=== PATIENT | male | born 1955 | race Caucasian/White ===

== ENCOUNTER 2020-09-14 18:38 | Emergency (ER) | payer OTHER ==
[2020-09-14] MEDS ORDERED: EPINEPHRINE ABBOJECT 1 MG IV ONE (18:39)
[2020-09-14] MEDS ORDERED: SODIUM BICARBONATE INFANT 5 MEQ/10 ML IV ONE (18:39)
[2020-09-14] MEDS ORDERED: DUONEB 0.5-3 MG/3 ml Neb IH ONE ×2 (18:40→18:42)
[2020-09-14] MEDS ORDERED: solu-MEDROL 125 MG ONE (18:41)
[2020-09-14] MEDS ORDERED: NITRO-BID 2% UD PACKETS ONE (18:46)
[2020-09-14] MEDS ORDERED: Furosemide 100mg/10 ml Vial ONE (18:46)
[2020-09-14] MEDS ORDERED: Zofran 4 MG/2 ML VIAL ONE (18:48)
[2020-09-14 18:58] LABS: Absolute Neutrophil Ct (ANC) 7.35 (1.4-6.9); BASOPHIL % 0.2 % (0.0-0.4); Basophil (Absolute #) 0.03 (0-0.4); Eosinophil % 4.5 % (0.00-5.0); Eosinophil (Absolute #) 0.63 (0-0.5); Hematocrit 58.2 % (42-50); Lymphocyte (Absolute #) 4.56 (1.0-4.6); Lymphocytes % 32.8 % (24.0-44.0); Mean Cell Volume 92.4 fl (78-100); Mean Corpuscular Hemoglobin 30.2 pg (26-32); Mean Corpuscular Hgb Concent. 32.6 g/dl (32-36); Monocyte (Absolute #) 1.33 (0.0-1.3); Monocytes % 9.6 % (0.0-12.0); Neutrophil % 52.9 % (36.0-66.0); Platelet Count 222 K/mm3 (150-450); Red Cell Distribution Width 14.2 % (11.5-14.0); White Blood Count 13.9 K/mm3 (4.0-10.5)
[2020-09-14] MEDS ORDERED: Magnesium Sulfate 1 GM/2 ML VIAL ONE (19:04)
[2020-09-14] MEDS ORDERED: Ntg 0.2MG/Ml in D5W GLASS*** 250 ML IV ONE (19:13)
[2020-09-14] MEDS ORDERED: Sodium Chloride 0.9% 1000 ML 2,000 ML ONE (19:14)
[2020-09-14] MEDS ORDERED: Propofol 1000 mg/100 ml Bottle 100 ML IV ONE (19:16)
[2020-09-14 19:19] LABS: ALBUMIN 5.4 g/dL (3.5-5.0); BILIRUBIN,TOTAL 0.7 mg/dL (0.2-1.3); Calcium 9.9 mg/dL (8.4-10.2); Creatinine 1 1.34 mg/dL (0.66-1.25); EST GLOMERULAR FILTRATION RATE 57.2 ML/MIN; MAGNESIUM 2.4 mg/dL (1.6-2.3); Total Protein 9.8 g/dL (6.3-8.2)
--- NOTE | 2020-09-14 19:20 | ERPHSYRPT ---
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 denies cardiac or respiratory hx. lungs sounds rales throughout posteriorally. pt unable to lay in bed, breathes easier sitting at bedside. Physician History: 64 years old male with history of hypertension presented in the ER with 20- minute sudden onset shortness of breath while he was sharpening his lawnmower blades prior to arrival. Patient is in moderate to severe respiratory distress on presentation. Complaining of chest tightness pressure all over. Denies any fever or chills. History is limited secondary to acuity of condition. Timing/Duration: sudden, worse Activities at Onset: activity Severity of Dyspnea-Max: severe Severity of Dyspnea-Current: severe Possible Cause: no prior episodes Associated Symptoms: cough, chest pain/discomfort, edema, productive cough, tightness Allergies/Adverse Reactions: No Known Drug Allergies Allergy (Unverified 09/14/20 18:48) Home Medications: Atenolol 50 mg [Tenormin 50 mg] 50 mg PO DAILY 09/14/20 [History] Fosinopril Sodium 40 mg PO DAILY 09/14/20 [History] Omeprazole 40 mg PO DAILY 09/14/20 [History] Hx Tetanus, Diphtheria Vaccination/Date Given: Yes Hx Influenza Vaccination/Date Given: No Hx Pneumococcal Vaccination/Date Given: No Immunizations Up to Date: Yes Travel Risk - International Travel Have you traveled outside of the country in past 3 weeks: No - Coronavirus Screening Are you exhibiting any of the following symptoms?: Yes Symptoms: Shortness of Breath Close contact with a COVID-19 positive Pt in past 14-21 Days: No - Vaccine Status Have you recieved a Covid-19 vaccination: Yes Hand Stoner: Moderna - Vaccination Dates Date of 2cond Vaccination (if applicable): 09/08/20 - Review of Systems All Other Systems: Unable due to condition - Past Medical History Pertinent Past Medical History: Yes Cardiac History: High Cholesterol, Hypertension - Past Surgical History Past Surgical History: Yes - Social History Smoking Status: Never smoker Exposure to second hand smoke: No Drug Use: none Patient Lives Alone: No - Nursing Vital Signs Nursing Vital Signs: Initial Vital Signs Pulse Rate 142 H 09/14/20 18:39 Respiratory Rate 30 H 09/14/20 18:39 O2 Sat by Pulse Oximetry 84 L 09/14/20 18:39 Pain Scale Pain Intensity 0 - Physical Exam General Appearance: moderate distress, alert Eye Exam: PERRL/EOMI, eyes nml inspection Ears, Nose, Throat Exam: hearing grossly normal (2.5), pharyngeal erythema Neck Exam: normal inspection, supple, full range of motion Respiratory Exam: diminished breath sounds, accessory muscle use, crackles/rales, rhonchi, wheezing Cardiovascular/Chest Exam: tachycardia Abdominal/Gastrointestinal Exam: soft, normal bowel sounds, tenderness Extremity Exam: non-tender, normal range of motion, normal inspection, no calf tenderness Neurologic Exam: alert, oriented x 3, cooperative Skin Exam: pale SpO2 Interpretation: normal SpO2: 93 O2 Delivery: Room Air Procedures - Intubation Time of Intubation: 18:50 Intubation Indications: cardiac arrest, respiratory arrest, airway protection, respiratory distress Intubation Method: glidescope Tube Size (cm): 7.5 Endotracheal Tube Confirmation: bilateral breath sounds, positive end tidal CO2, good rise & fall of chest, stable or inc of O2 sat Intubation Complications: no complications Performed By: ED Physician Post Intubation Xray: Yes Progress/X-ray Impression: 09/14/20 20:56 6cm above prince - Course EKG Interpreted by Me: RATE ([id number]), Sinus Tach, NORMAL AXIS, Left Bundle Branch Block, Other (Early repolarization) Ordered Tests: Active Orders 24 hr Category Date Time Status CHEST 1 VIEW (PORTABLE) Stat Exams 09/14/20 18:47 Taken CHEST WITH CONTRAST [CT] Stat Exams 09/14/20 19:45 Taken ARTERIAL BLOOD GASES Stat Lab 09/14/20 19:22 Completed BLOOD CULTURE Stat Lab 09/14/20 19:16 Received CBC W DIFF Stat Lab 09/14/20 18:54 Completed CMP Stat Lab 09/14/20 18:54 Completed D-DIMER QUANTITATIVE Stat Lab 09/14/20 18:54 Completed Lactic Acid Stat Lab 09/14/20 19:22 Completed Lactic Acid Stat Lab 09/14/20 21:31 Completed MAGNESIUM Stat Lab 09/14/20 18:54 Completed NT PRO BNP Stat Lab 09/14/20 18:54 Completed POCT GLUCOSE Stat Lab 09/14/20 19:35 Completed Pot [Potassium] Stat Lab 09/14/20 21:40 Completed TROPONIN Q3H Lab 09/14/20 19:00 Completed TROPONIN Q3H Lab 09/14/20 21:40 Completed BiPap/CPAP STAT RT 09/14/20 18:47 Completed Intubate Patient STAT RT 09/14/20 18:55 Completed Respiratory Therapy Assessment DAILY RT 09/14/20 22:03 Completed Vent Settings [Ventilator Management] STAT RT 09/14/20 20:57 Completed Medication Summary Discontinued Medications Generic Name Dose Route Start Last Admin Trade Name Freq PRN Reason Stop Dose Admin Albuterol/Ipratropium Confirm 09/14/20 18:42 Duoneb 0.5-3 Mg/3 Ml Neb Administered 09/14/20 18:43 Dose 3 ml IH .STK-MED ONE Albuterol/Ipratropium 3 ml 09/14/20 18:40 09/14/20 18:45 Duoneb 0.5-3 Mg/3 Ml Neb IH 09/14/20 18:41 3 ml STAT ONE Administration Fentanyl Citrate Confirm 09/14/20 19:40 Sublimaze 100 Mcg/2 Ml Administered 09/14/20 19:41 Dose 100 mcg .ROUTE .STK-MED ONE Furosemide Confirm 09/14/20 18:46 Furosemide 100mg/10 Ml Vial Administered 09/14/20 18:47 Dose 100 mg .ROUTE .STK-MED ONE Furosemide Confirm 09/14/20 19:29 Lasix 40 Mg/4 Ml Administered 09/14/20 19:30 Dose 40 mg .ROUTE .STK-MED ONE Nitroglycerin/Dextrose Confirm 09/14/20 19:13 Ntg 0.2mg/Ml In D5w Glass Administered 09/14/20 19:14 Dose 250 mls @ ud IV .STK-MED ONE Sodium Chloride Confirm 09/14/20 19:14 Sodium Chloride 0.9% 1000 Ml Administered 09/14/20 19:15 Dose 2,000 mls @ ud .ROUTE .STK-MED ONE Propofol Confirm 09/14/20 19:16 Propofol 1000 Mg/100 Ml Bottle Administered 09/14/20 19:17 Dose 100 mls @ ud IV .STK-MED ONE Piperacillin Sod/Tazobactam 100 mls @ 200 mls/hr 09/14/20 19:26 09/14/20 19:44 Sod 3.375 gm/ Sodium Chloride IV 09/14/20 19:55 200 mls/hr STAT ONE Administration Sodium Chloride Confirm 09/14/20 19:43 Sodium Chloride 100ml Mini-Bag Plus Administered 09/14/20 19:44 Dose 100 mls @ ud IV .STK-MED ONE Dobutamine HCl/Dextrose Confirm 09/14/20 19:51 Dobutrex 500 Mg/D5w 250 Ml Administered 09/14/20 19:52 Dose 250 mls @ ud IV .STK-MED ONE Norepinephrine 4,000 mcg/ 504 mls @ 37.8 mls/hr 09/14/20 20:14 09/14/20 20:27 Dextrose IV 10/14/20 20:13 5 mcg/min .[id number] PRN 37.8 mls/hr SEVERE HYPOTENSION Administration Protocol 5 MCG/MIN Magnesium Sulfate Confirm 09/14/20 19:04 Magnesium Sulfate 1 Gm/2 Ml Vial Administered 09/14/20 19:05 Dose 2 gm .ROUTE .STK-MED ONE Methylprednisolone Sodium Succinate Confirm 09/14/20 18:41 Solu-Medrol 125 Mg Administered 09/14/20 18:42 Dose 125 mg .ROUTE .STK-MED ONE Midazolam HCl Confirm 09/14/20 20:21 Versed 5 Mg/5 Ml Administered 09/14/20 20:22 Dose 5 mg .ROUTE .STK-MED ONE Nitroglycerin Confirm 09/14/20 18:46 Nitro-Bid 2% Ud Packets Administered 09/14/20 18:47 Dose 1 gm .ROUTE .STK-MED ONE Ondansetron HCl Confirm 09/14/20 18:48 Zofran 4 Mg/2 Ml Vial Administered 09/14/20 18:49 Dose 4 mg .ROUTE .STK-MED ONE Piperacillin Sod/Tazobactam Sod Confirm 09/14/20 19:42 Zosyn 3.375 Gm Vial Administered 09/14/20 19:43 Dose 3.375 gm IV .STK-MED ONE Lab/Rad Data: Laboratory Result Diagrams 09/14/20 18:54 09/14/20 21:40 Laboratory Results 04/28/21 04/28/21 04/28/21 Range/Units 21:40 21:40 21:31 WBC (4.0-10.5) K/mm3 RBC (4.1-5.6) M/mm3 Hgb (12.5-18.0) gm/dl Hct (42-50) % MCV (78-100) fl MCH (26-32) pg MCHC (32-36) g/dl RDW (11.5-14.0) % Plt Count (150-450) K/mm3 MPV (7.5-11.0) fl Gran % (36.0-66.0) % Eos # (Auto) (0-0.5) Absolute Lymphs (auto) (1.0-4.6) Absolute Monos (auto) (0.0-1.3) Lymphocytes % (24.0-44.0) % Monocytes % (0.0-12.0) % Eosinophils % (0.00-5.0) % Basophils % (0.0-0.4) % Absolute Granulocytes (1.4-6.9) Basophils # (0-0.4) D-Dimer (215-500) ng/mL Puncture Site pCO2 (35-45) mmHg pO2 (75-100) mmHg Base Excess (-2.0-2.0) O2 Saturation (94-100) g/dF ABG pH (7.35-7.45) ABG HCO3 (22-28) ABG O2 Sat (Measured) (95-100) % Arden Test A-a Gradient a/A Ratio Hemoglobin Carboxyhemoglobin (0.0-6.9) % THgb Methemoglobin (1.4-1.5) % Temperature C POC O2 Flow Rate % Vent Mode Tidal Volume cc PEEP cmH2O Sodium (137-145) mmol/L Potassium 3.8 D (3.5-5.1) mmol/L Chloride (98-107) mmol/L Carbon Dioxide (22-30) mmol/L Anion Gap (5-15) MEQ/L BUN (9-20) mg/dL Creatinine (0.66-1.25) mg/dL Estimated GFR ML/MIN Glucose (74-106) mg/dL POC Glucometer (74 to 106) mg/dL Lactic Acid 4.2 H (0.4-2.0) Calcium (8.4-10.2) mg/dL Magnesium (1.6-2.3) mg/dL Total Bilirubin (0.2-1.3) mg/dL AST (17-59) U/L ALT (0-50) U/L Alkaline Phosphatase (38-126) U/L Troponin I 0.284 H* (0.000-0.034) ng/mL NT-Pro-B Natriuret Pep (0-900) pg/mL Serum Total Protein (6.3-8.2) g/dL Albumin (3.5-5.0) g/dL 09/14/20 09/14/20 09/14/20 Range/Units 19:35 19:22 19:00 WBC (4.0-10.5) K/mm3 RBC (4.1-5.6) M/mm3 Hgb (12.5-18.0) gm/dl Hct (42-50) % MCV (78-100) fl MCH (26-32) pg MCHC (32-36) g/dl RDW (11.5-14.0) % Plt Count (150-450) K/mm3 MPV (7.5-11.0) fl Gran % (36.0-66.0) % Eos # (Auto) (0-0.5) Absolute Lymphs (auto) (1.0-4.6) Absolute Monos (auto) (0.0-1.3) Lymphocytes % (24.0-44.0) % Monocytes % (0.0-12.0) % Eosinophils % (0.00-5.0) % Basophils % (0.0-0.4) % Absolute Granulocytes (1.4-6.9) Basophils # (0-0.4) D-Dimer (215-500) ng/mL Puncture Site LEFT BRACHIAL pCO2 61 H* (35-45) mmHg pO2 83 (75-100) mmHg Base Excess -11.9 L (-2.0-2.0) O2 Saturation 92.7 L (94-100) g/dF ABG pH 7.09 L* (7.35-7.45) ABG HCO3 18.5 L (22-28) ABG O2 Sat (Measured) 94.1 L (95-100) % Arden Test NOT APPLICABLE A-a Gradient 554 a/A Ratio 0.13 Hemoglobin 16.5 Carboxyhemoglobin 0.7 (0.0-6.9) % THgb Methemoglobin 0.8 L (1.4-1.5) % Temperature 37.0 C POC O2 Flow Rate 100 % Vent Mode A/C Tidal Volume 650 cc PEEP 5.0 cmH2O Sodium (137-145) mmol/L Potassium 2.7 L* (3.5-5.1) mmol/L Chloride (98-107) mmol/L Carbon Dioxide (22-30) mmol/L Anion Gap (5-15) MEQ/L BUN (9-20) mg/dL Creatinine (0.66-1.25) mg/dL Estimated GFR ML/MIN Glucose (74-106) mg/dL POC Glucometer 329 H (74 to 106) mg/dL Lactic Acid 11.4 H (0.4-2.0) Calcium (8.4-10.2) mg/dL Magnesium (1.6-2.3) mg/dL Total Bilirubin (0.2-1.3) mg/dL AST (17-59) U/L ALT (0-50) U/L Alkaline Phosphatase (38-126) U/L Troponin I 0.071 H* (0.000-0.034) ng/mL NT-Pro-B Natriuret Pep (0-900) pg/mL Serum Total Protein (6.3-8.2) g/dL Albumin (3.5-5.0) g/dL 09/14/20 09/14/20 09/14/20 Range/Units 18:54 18:54 18:54 WBC 13.9 H (4.0-10.5) K/mm3 RBC 6.30 H* (4.1-5.6) M/mm3 Hgb 19.0 H (12.5-18.0) gm/dl Hct 58.2 H (42-50) % MCV 92.4 (78-100) fl MCH 30.2 (26-32) pg MCHC 32.6 (32-36) g/dl RDW 14.2 H (11.5-14.0) % Plt Count 222 (150-450) K/mm3 MPV 13.0 H (7.5-11.0) fl Gran % 52.9 (36.0-66.0) % Eos # (Auto) 0.63 H (0-0.5) Absolute Lymphs (auto) 4.56 (1.0-4.6) Absolute Monos (auto) 1.33 H (0.0-1.3) Lymphocytes % 32.8 (24.0-44.0) % Monocytes % 9.6 (0.0-12.0) % Eosinophils % 4.5 (0.00-5.0) % Basophils % 0.2 (0.0-0.4) % Absolute Granulocytes 7.35 H (1.4-6.9) Basophils # 0.03 (0-0.4) D-Dimer 617 H* (215-500) ng/mL Puncture Site pCO2 (35-45) mmHg pO2 (75-100) mmHg Base Excess (-2.0-2.0) O2 Saturation (94-100) g/dF ABG pH (7.35-7.45) ABG HCO3 (22-28) ABG O2 Sat (Measured) (95-100) % Arden Test A-a Gradient a/A Ratio Hemoglobin Carboxyhemoglobin (0.0-6.9) % THgb Methemoglobin (1.4-1.5) % Temperature C POC O2 Flow Rate % Vent Mode Tidal Volume cc PEEP cmH2O Sodium 141 (137-145) mmol/L Potassium 5.1 (3.5-5.1) mmol/L Chloride 103 (98-107) mmol/L Carbon Dioxide 18 L (22-30) mmol/L Anion Gap 25.0 H (5-15) MEQ/L BUN 15 (9-20) mg/dL Creatinine 1.34 H (0.66-1.25) mg/dL Estimated GFR 57.2 ML/MIN Glucose 157 H (74-106) mg/dL POC Glucometer (74 to 106) mg/dL Lactic Acid (0.4-2.0) Calcium 9.9 (8.4-10.2) mg/dL Magnesium 2.4 H (1.6-2.3) mg/dL Total Bilirubin 0.70 (0.2-1.3) mg/dL AST 41 (17-59) U/L ALT 36 (0-50) U/L Alkaline Phosphatase 125 (38-126) U/L Troponin I (0.000-0.034) ng/mL NT-Pro-B Natriuret Pep 3100 H (0-900) pg/mL Serum Total Protein 9.8 H (6.3-8.2) g/dL Albumin 5.4 H (3.5-5.0) g/dL - Progress Progress: improved, re-examined Air Movement: fair Progress Note: 09/14/20 19:14 64 years old is evaluated for the respiratory distress. He is given Solu- Medrol/breathing treatment and placed on BiPAP, was pushed 60 of IV Lasix and patient respiratory distress got worse and went into respiratory arrest causing cardiac arrest. Patient is promptly suctioned and intubated. CPR was started and had multiple rounds of epi and bicarb and return of spontaneous circulation is achieved. He is started on nitro drip. [facility] is called which is at full capacity for ICU. [facility] is called for transfer. Family is counseled in detail. 09/14/20 19:46 D/W DR. [place], reviewed patient history, presentation, work-up and current management, agreed with transfer. He recommended obtaining CTA chest before transfer which would be done to make sure patient does not have PE although he has age-adjusted D-dimer is negative. 09/14/20 20:33 Patient getting hypotensive, has Nitropaste and nitro drip is stopped. I believe patient is getting hypotensive because of Lasix effect. Started on dobutamine followed by Levophed and pressure is improved to 120s now. Patient is waking up and given Versed. 09/14/20 22:19 Patient remains intubated. Levophed is stopped and continue with dobutamine. CTA chest is not a diagnostic study for PE because of motion artifact from epi athing via Ambu bag but could not see any obvious large PEs and has bilateral atelectasis. Patient is ready for transfer. Blood Culture(s) Obtained: Yes Antibiotics given: Yes Discussed with DrSarah: Other (Cristofer, [facility]) Counseled pt/family regarding: lab results, diagnosis, need for follow-up, rad results - Departure Departure Disposition: Transfer Clinical Impression: Pulmonary edema cardiac cause Failure respiratory Qualifiers: Chronicity: acute Respiratory failure complication: hypoxia and hypercapnia Qualified Code(s): J96.01 - Acute respiratory failure with hypoxia Acute exacerbation of CHF (congestive heart failure) Qualifiers: Heart failure type: unspecified Qualified Code(s): I50.9 - Heart failure, unspecified Condition: Serious Critical Care Time: Yes Critical Care Time(excluding separately billable procedures): Critical 75-104 mins Referrals: MEAGAN MILLER [Primary Care Provider] - Instructions: Heart Failure
[2020-09-14] MEDS ORDERED: Zosyn 3.375 GM Vial 3.375 GM in Sodium Chloride 100ML MINI-BAG PLUS 100 ML IV ONE (19:26)
[2020-09-14 19:29] LABS: A-aADO2 554; ABG HEMOGLOBIN 16.5; ARTERIAL BLD GAS O2 SATURATION 94.1 % (95-100); ARTERIAL BLD GAS TIDAL VOLUME 650 cc; ARTERIAL BLOOD GAS BASE EXCESS -11.9 (-2.0-2.0); ARTERIAL BLOOD GAS FIO2 100 %; ARTERIAL BLOOD GAS PO2 83 mmHg (75-100); ARTERIAL BLOOD GAS VENT MODE A/C; CARBOXYHEMOGLOBIN 0.7 % THgb (0.0-6.9); HCO3- 18.5 (22-28); HGB O2 SAT 92.7 g/dF (94-100); Lactic Acid 11.4 (0.4-2.0); Methhemoglobin 0.8 % (1.4-1.5)
[2020-09-14] MEDS ORDERED: Lasix 40 MG/4 ML ONE (19:29)
[2020-09-14 19:30] LABS: ABG POTASSIUM 2.7 (3.5-5.1); ARTERIAL BLOOD GAS PCO2 61 mmHg (35-45); ARTERIAL BLOOD GAS pH 7.09 (7.35-7.45)
[2020-09-14 19:31] LABS: Potassium 5.1 mmol/L (3.5-5.1)
[2020-09-14 19:31] LABS: ABG SITE LEFT BRACHIAL
[2020-09-14] MEDS ORDERED: SUBLIMAZE 100 MCG/2 ML ONE (19:40)
[2020-09-14] MEDS ORDERED: Zosyn 3.375 GM Vial IV ONE (19:42)
[2020-09-14] MEDS ORDERED: Sodium Chloride 100ML MINI-BAG PLUS 100 ML IV ONE (19:43)
[2020-09-14] MEDS ORDERED: DOBUTREX 500 MG/D5W 250 ML 250 ML IV ONE (19:51)
[2020-09-14] MEDS ORDERED: LEVOPHED 4 MG/4 ML 4,000 MCG in Dextrose 5%/Water IV Soln. 500 ML 500 ML IV PRN (20:14)
[2020-09-14] MEDS ORDERED: VERSED 5 MG/5 ML ONE (20:21)
[2020-09-14 22:11] VITALS: BP 161/106; PULSE 112
[2020-09-14 22:21] VITALS: O2SAT 93
--- NOTE | 2020-09-15 08:41 | XRAY ---
Indication: Endotracheal tube placement. Cardiac arrest. Comparison: None Portable chest demonstrates endotracheal tube tip 6 cm above the prince. Query additional tubing coiled mid neck, possibly NG tube. Diffuse bilateral hazy airspace opacities without consolidation, large effusion, or pneumothorax. Boderline cardiomegaly. Bony thorax intact.
--- NOTE | 2020-09-15 08:46 | XRAY ---
Indication: Respiratory distress with cardiac arrest. Elevated d-dimer. Multiple contiguous axial images obtained through the chest using 100 cc Isovue 370 contrast and PE protocol. Comparison: None Beam artifact from patient's arms and significant respiration artifact markedly limits evaluation for pulmonary embolus. No obvious pulmonary embolus in the main pulmonary arteries. Heart is borderline enlarged. Aorta is normal in course and caliber. Endotracheal tube tip approximately 6 cm above prince. Small right suprahilar calcified node. No pathologic mediastinal/hilar lymphadenopathy. Lungs demonstrate moderate/significant bilateral dependent atelectasis. Query patchy hazy groundglass opacities bilaterally, difficult to confirm given respiration artifact. No large effusion or pneumothorax. Bony thorax intact with minimal degenerative changes throughout the spine. Limited upper abdomen demonstrates fatty liver. Stomach is moderately distended with air/fluid. Impression: 1. Markedly limited exam due to respiration and beam artifact. No obvious pulmonary embolus in main pulmonary arteries. 2. Query patchy hazy ground glass opacities bilaterally. 3. Borderline cardiomegaly and bilateral dependent atelectasis. 4. Endotracheal tube tip 6 cm above prince. 5. Incidental fatty liver.
== END 2020-09-14 22:19 | disposition short-term general hospital (02) ==
LOC: ED 18:38
DX: I50.1 Left ventricular failure, unspecified (principal); J96.01 Acute respiratory failure with hypoxia; Z79.899 Other long term (current) drug therapy; I10 Essential (primary) hypertension; E78.00 Pure hypercholesterolemia, unspecified; R07.89 Other chest pain
CPT/HCPCS: 31500; 36415; 36600; 71045; 71260; 80053; 82375; 82803; 82947; 83605; 83735; 83880; 84132; 84484; 85025; 85379; 87040; 87077; 94002; 94640; 94799; 96365; 96367; 96375; 99285; 99291; 99292; J0171; J1250; J1940; J2250; J2405; J2704; J2930; J3010; J3475; A9270-GY

== ENCOUNTER 2021-05-29 12:14 | Observation (INO) | payer BC ==
--- NOTE | 2021-05-29 12:53 | ERPHSYRPT ---
- History of Present Illness Time Seen by Provider: 05/29/21 12:35 Source: patient Exam Limitations: no limitations Patient Subjective Stated Complaint: Pt states "I am not feeling well. I am very anxious and my hands and feet are sweaty and my belly hurts. I started a new anxiety med and after I started the medicine, that is when all this started." Triage Nursing Assessment: Pt presented alert and oriented X 3, skin wpd Pt ambulates with an upright steady gait, ablble to speak in clear full sentences. Pt resting comfortably on the bed. Physician History: Patient is a 65-year-old male presents to our ED with complaints of feeling unwell. Symptoms started yesterday. Patient states he feels anxious. He states his hands and feet have been sweating excessively. Patient also has lower sternal pain. Patient describes his pain as abdominal pain. No trauma. No fever. 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 Patient has 2 stents. Patient has been taking all medications as prescribed. Patient states his primary care doctor advised patient to come to our ED for evaluation. Symptoms are mild to moderate in intensity. No specific worsening improving factors. Patient voices no other complaints or concerns at this time.. Timing/Duration: today Severity: moderate Modifying Factors: Improves With: nothing Associated Symptoms: other Allergies/Adverse Reactions: No Known Drug Allergies Allergy (Verified 05/29/21 12:26) Home Medications: Omeprazole 40 mg PO DAILY 09/14/20 [History] Aspirin [Ecotrin] 81 mg PO DAILY 05/29/21 [History] Atorvastatin Calcium [Lipitor 40Mg] 40 mg PO HS 05/29/21 [History] Carvedilol 12.5 mg [Coreg 12.5 mg] 12.5 mg PO BID 05/29/21 [History] Eplerenone 25 mg PO DAILY 05/29/21 [History] Prasugrel HCL 10 MG [Effient 10 MG TABLET] 10 mg PO HS 05/29/21 [History] Sacubitril/Valsartan [Entresto 97 mg-103 mg Tablet] 1 tab PO BID 05/29/21 [History] Hx Tetanus, Diphtheria Vaccination/Date Given: No Hx Influenza Vaccination/Date Given: Yes Hx Pneumococcal Vaccination/Date Given: No Immunizations Up to Date: Yes Travel Risk - International Travel Have you traveled outside of the country in past 3 weeks: No - Coronavirus Screening Are you exhibiting any of the following symptoms?: No Close contact with a COVID-19 positive Pt in past 14-21 Days: No - Vaccine Status Have you recieved a Covid-19 vaccination: Yes [employer]: Moderna - Vaccination Dates Date of 2cond Vaccination (if applicable): 09/2020 - Review of Systems Constitutional: No Symptoms, No Fever, No Chills Eyes: No Symptoms Ears, Nose, & Throat: No Symptoms Respiratory: No Symptoms, No Cough, No Dyspnea Cardiac: No Symptoms, No Chest Pain, No Edema, No Syncope Abdominal/Gastrointestinal: No Symptoms, No Abdominal Pain, No Nausea, No Vomiting, No Diarrhea Genitourinary Symptoms: No Symptoms, No Dysuria Musculoskeletal: No Symptoms, No Back Pain, No Neck Pain Skin: No Symptoms, No Rash Neurological: No Symptoms, No Dizziness, No Focal Weakness, No Sensory Changes Psychological: No Symptoms Endocrine: No Symptoms Hematologic/Lymphatic: No Symptoms Immunological/Allergic: No Symptoms All Other Systems: Reviewed and Negative - Past Medical History Pertinent Past Medical History: Yes Neurological History: No Pertinent History Cardiac History: High Cholesterol, Hypertension, Myocardial Infarction (RI) Psycho-Social History: Anxiety, Depression - Past Surgical History Past Surgical History: Yes Other Surgical History: cardiac stents - Social History Smoking Status: Never smoker Exposure to second hand smoke: No Drug Use: none Patient Lives Alone: No - Nursing Vital Signs Nursing Vital Signs: Initial Vital Signs Temperature 97.7 F 05/29/21 12:19 Pulse Rate 92 H 05/29/21 12:19 Respiratory Rate 20 05/29/21 12:19 Blood Pressure 200/112 05/29/21 12:19 O2 Sat by Pulse Oximetry 97 05/29/21 12:19 Pain Scale Pain Intensity 2 - Physical Exam General Appearance: no apparent distress, alert Eye Exam: PERRL/EOMI, eyes nml inspection Ears, Nose, Throat Exam: normal ENT inspection, TMs normal, pharynx normal, moist mucous membranes Neck Exam: normal inspection, non-tender, supple, full range of motion Respiratory Exam: normal breath sounds, lungs clear, airway intact, No respiratory distress Cardiovascular Exam: regular rate/rhythm, normal heart sounds, normal peripheral pulses Gastrointestinal/Abdomen Exam: soft, normal bowel sounds, No tenderness, No mass Back Exam: normal inspection, normal range of motion, No CVA tenderness, No vertebral tenderness Extremity Exam: normal inspection, normal range of motion, pelvis stable Neurologic Exam: alert, oriented x 3, cooperative, normal mood/affect, sensation nml, No motor deficits Skin Exam: normal color, warm, dry, No rash Lymphatic Exam: No adenopathy SpO2 Interpretation: normal SpO2: 97 O2 Delivery: Room Air - Course Nursing assessment & vital signs reviewed: Yes EKG Interpreted by Me: RATE (82), NORMAL AXIS, NORMAL INTERVALS, Non-specific ST Changes (ST depression at 1 and aVL.), Other (Atrial paced complexes. Probable LVH with secondary repull abnormality.) - Radiology Exams Chest X-ray Interpretation: Interpreted by me (Lung mckeon are clear. Borderline cardiomegaly. Intact bony thorax.) Ordered Tests: Active Orders 24 hr Category Date Time Status LIPID PROFILE AM.LAB Lab 05/30/21 05:15 Completed Medication Summary Discontinued Medications Generic Name Dose Route Start Last Admin Trade Name Freq PRN Reason Stop Dose Admin Acetaminophen 650 mg 05/29/21 20:49 Acetaminophen 325 Mg Tablet PO 06/28/21 20:48 Q4H PRN PRN PAIN AND/OR FEVER Al Hydrox/Mg Hydrox/Simethicone 30 ml 05/29/21 20:49 05/30/21 08:18 Mag Hydrox/Al Hydrox/Simeth 30 Ml Udcup PO 06/28/21 20:48 30 ml Q4H PRN PRN Administration INDIGESTION Aspirin 324 mg 05/29/21 20:12 Aspirin 81 Mg Tab.Chew PO 05/29/21 20:13 STAT ONE Aspirin 81 mg 05/30/21 12:00 05/30/21 14:52 Aspirin 81 Mg Tablet.Ec PO 06/29/21 11:59 81 mg DAILY TOMASZ Administration Carvedilol 12.5 mg 05/29/21 22:00 05/30/21 09:22 Carvedilol 12.5 Mg Tablet PO 06/28/21 21:59 12.5 mg BID TOMASZ Administration Ezetimibe 10 mg/ Simvastatin 0 mg 05/29/21 22:00 40 mg PO 06/28/21 21:59 HS TOMASZ Furosemide 20 mg 05/30/21 10:00 Furosemide 20 Mg/Vial IV 06/29/21 09:59 QAM TOMASZ Magnesium Hydroxide 30 - 60 ml 05/29/21 20:49 Magnesium Hydroxide 30 Ml Udcup PO 06/28/21 20:48 QDP PRN CONSTIPATION Miscellaneous Information 1 each 05/30/21 11:15 Medication Intervention 1 Each Each PO 06/29/21 11:14 .RN TO CHECK ON TOMASZ Nitroglycerin 1 gm 05/29/21 20:11 Nitroglycerin 1 Gm Packet TOP 05/29/21 20:12 STAT ONE Ondansetron HCl 4 mg 05/29/21 23:12 Zofran 4 Mg/Udtablet Orally Disintegrating PO 06/28/21 23:11 Q6H PRN PRN NAUSEA/VOMITING Pantoprazole Sodium 40 mg 05/30/21 12:00 05/30/21 14:52 Protonix (Pantoprazole) 40 Mg Tablet PO 06/29/21 11:59 40 mg DAILY TOMASZ Administration Prasugrel 10 mg 05/30/21 10:00 Prasugrel Hydrochloride 10 Mg Tablet PO 06/29/21 09:59 DAILY TOMASZ Prasugrel 10 mg 05/29/21 23:09 05/29/21 23:12 Prasugrel Hydrochloride 10 Mg Tablet PO 06/28/21 21:59 10 mg HS TOMASZ Administration Sacubitril/Valsartan 2 tablet 05/29/21 10:00 05/30/21 09:22 Sacubitril/Valsartan 1 Tablet Tablet PO 06/28/21 09:59 2 tablet BID TOMASZ Administration Sacubitril/Valsartan Confirm 05/29/21 23:02 Sacubitril/Valsartan 1 Tablet Tablet Administered 05/29/21 23:03 Dose 2 tablet .ROUTE .STK-MED ONE Senna/Docusate Sodium 2 udtab 05/29/21 20:49 Senna/Docusate Sodium 1 Udtab Tablet PO 06/28/21 20:48 BID PRN PRN CONSTIPATION Simvastatin 40 mg 05/29/21 22:00 05/29/21 23:12 Simvastatin 20 Mg Tablet PO 06/28/21 21:59 40 mg HS TOMASZ Administration Lab/Rad Data: Laboratory Result Diagrams 05/29/21 12:59 05/29/21 12:59 Laboratory Results 05/29/21 05/29/21 05/29/21 Range/Units 19:00 17:55 16:18 WBC (4.0-10.5) K/mm3 RBC (4.1-5.6) M/mm3 Hgb (12.5-18.0) gm/dl Hct (42-50) % MCV (78-100) fl MCH (26-32) pg MCHC (32-36) g/dl RDW (11.5-14.0) % Plt Count (150-450) K/mm3 MPV (7.5-11.0) fl Gran % (36.0-66.0) % Eos # (Auto) (0-0.5) Absolute Lymphs (auto) (1.0-4.6) Absolute Monos (auto) (0.0-1.3) Lymphocytes % (24.0-44.0) % Monocytes % (0.0-12.0) % Eosinophils % (0.00-5.0) % Basophils % (0.0-0.4) % Absolute Granulocytes (1.4-6.9) Basophils # (0-0.4) Sodium (137-145) mmol/L Potassium (3.5-5.1) mmol/L Chloride (98-107) mmol/L Carbon Dioxide (22-30) mmol/L Anion Gap (5-15) MEQ/L BUN (9-20) mg/dL Creatinine (0.66-1.25) mg/dL Estimated GFR ML/MIN Glucose (74-106) mg/dL Calcium (8.4-10.2) mg/dL Total Bilirubin (0.2-1.3) mg/dL AST (17-59) U/L ALT (0-50) U/L Alkaline Phosphatase (38-126) U/L Troponin I 0.013 0.018 (0.000-0.034) ng/mL NT-Pro-B Natriuret Pep (0-900) pg/mL Serum Total Protein (6.3-8.2) g/dL Albumin (3.5-5.0) g/dL Lipase (23-300) U/L Urine Color (YELLOW) Urine Appearance (CLEAR) Urine pH (5-6) Ur Specific [place] (1.005-1.025) Urine Protein (Negative) Urine Ketones (NEGATIVE) Urine Blood (0-5) Rosales/ul Urine Nitrite (NEGATIVE) Urine Bilirubin (NEGATIVE) Urine Urobilinogen (0-1) mg/dL Ur Leukocyte Esterase (NEGATIVE) Urine WBC (Auto) (0-5) /HPF Urine RBC (Auto) (0-2) /HPF U Epithel Cells (Auto) (FEW) /HPF Urine Bacteria (Auto) (NEGATIVE) /HPF Urine Mucus (Auto) (NEGATIVE) /HPF Urine Culture Reflexed (NO) Urine Glucose (NEGATIVE) mg/dL Influenza Type A Ag NEGATIVE (NEGATIVE) Influenza Type B Ag NEGATIVE (NEGATIVE) RSV (PCR) NEGATIVE (Negative) SARS-CoV-2 (PCR) NEGATIVE (NEGATIVE) 05/29/21 05/29/21 05/29/21 Range/Units 15:22 12:59 12:59 WBC (4.0-10.5) K/mm3 RBC (4.1-5.6) M/mm3 Hgb (12.5-18.0) gm/dl Hct (42-50) % MCV (78-100) fl MCH (26-32) pg MCHC (32-36) g/dl RDW (11.5-14.0) % Plt Count (150-450) K/mm3 MPV (7.5-11.0) fl Gran % (36.0-66.0) % Eos # (Auto) (0-0.5) Absolute Lymphs (auto) (1.0-4.6) Absolute Monos (auto) (0.0-1.3) Lymphocytes % (24.0-44.0) % Monocytes % (0.0-12.0) % Eosinophils % (0.00-5.0) % Basophils % (0.0-0.4) % Absolute Granulocytes (1.4-6.9) Basophils # (0-0.4) Sodium 140 (137-145) mmol/L Potassium 4.4 (3.5-5.1) mmol/L Chloride 105 (98-107) mmol/L Carbon Dioxide 26 (22-30) mmol/L Anion Gap 13.4 (5-15) MEQ/L BUN 20 (9-20) mg/dL Creatinine 1.27 H (0.66-1.25) mg/dL Estimated GFR > 60.0 ML/MIN Glucose 99 (74-106) mg/dL Calcium 9.7 (8.4-10.2) mg/dL Total Bilirubin 0.80 (0.2-1.3) mg/dL AST 30 (17-59) U/L ALT 37 (0-50) U/L Alkaline Phosphatase 77 (38-126) U/L Troponin I < 0.012 (0.000-0.034) ng/mL NT-Pro-B Natriuret Pep 1060 H (0-900) pg/mL Serum Total Protein 7.8 (6.3-8.2) g/dL Albumin 5.0 (3.5-5.0) g/dL Lipase 156 (23-300) U/L Urine Color KARI (YELLOW) Urine Appearance SLIGHTLY CLOUDY (CLEAR) Urine pH 5.0 (5-6) Ur Specific [place] 1.029 (1.005-1.025) Urine Protein 100 (Negative) Urine Ketones NEGATIVE (NEGATIVE) Urine Blood NEGATIVE (0-5) [place]/ul Urine Nitrite NEGATIVE (NEGATIVE) Urine Bilirubin NEGATIVE (NEGATIVE) Urine Urobilinogen 2 (0-1) mg/dL Ur Leukocyte Esterase NEGATIVE (NEGATIVE) Urine WBC (Auto) NONE (0-5) /HPF Urine RBC (Auto) NONE (0-2) /HPF U Epithel Cells (Auto) NONE (FEW) /HPF Urine Bacteria (Auto) NONE (NEGATIVE) /HPF Urine Mucus (Auto) SLIGHT (NEGATIVE) /HPF Urine Culture Reflexed NO (NO) Urine Glucose NEGATIVE (NEGATIVE) mg/dL Influenza Type A Ag (NEGATIVE) Influenza Type B Ag (NEGATIVE) RSV (PCR) (Negative) SARS-CoV-2 (PCR) (NEGATIVE) 05/29/21 Range/Units 12:59 WBC 10.0 (4.0-10.5) K/mm3 RBC 4.75 (4.1-5.6) M/mm3 Hgb 14.1 (12.5-18.0) gm/dl Hct 42.6 (42-50) % MCV 89.7 (78-100) fl MCH 29.7 (26-32) pg MCHC 33.1 (32-36) g/dl RDW 13.3 (11.5-14.0) % Plt Count 195 (150-450) K/mm3 MPV 12.0 H (7.5-11.0) fl Gran % 76.8 H (36.0-66.0) % Eos # (Auto) 0.11 (0-0.5) Absolute Lymphs (auto) 1.34 (1.0-4.6) Absolute Monos (auto) 0.84 (0.0-1.3) Lymphocytes % 13.4 L (24.0-44.0) % Monocytes % 8.4 (0.0-12.0) % Eosinophils % 1.1 (0.00-5.0) % Basophils % 0.3 (0.0-0.4) % Absolute Granulocytes 7.71 H (1.4-6.9) Basophils # 0.03 (0-0.4) Sodium (137-145) mmol/L Potassium (3.5-5.1) mmol/L Chloride (98-107) mmol/L Carbon Dioxide (22-30) mmol/L Anion Gap (5-15) MEQ/L BUN (9-20) mg/dL Creatinine (0.66-1.25) mg/dL Estimated GFR ML/MIN Glucose (74-106) mg/dL Calcium (8.4-10.2) mg/dL Total Bilirubin (0.2-1.3) mg/dL AST (17-59) U/L ALT (0-50) U/L Alkaline Phosphatase (38-126) U/L Troponin I (0.000-0.034) ng/mL NT-Pro-B Natriuret Pep (0-900) pg/mL Serum Total Protein (6.3-8.2) g/dL Albumin (3.5-5.0) g/dL Lipase (23-300) U/L Urine Color (YELLOW) Urine Appearance (CLEAR) Urine pH (5-6) Ur Specific [place] (1.005-1.025) Urine Protein (Negative) Urine Ketones (NEGATIVE) Urine Blood (0-5) Rosales/ul Urine Nitrite (NEGATIVE) Urine Bilirubin (NEGATIVE) Urine Urobilinogen (0-1) mg/dL Ur Leukocyte Esterase (NEGATIVE) Urine WBC (Auto) (0-5) /HPF Urine RBC (Auto) (0-2) /HPF U Epithel Cells (Auto) (FEW) /HPF Urine Bacteria (Auto) (NEGATIVE) /HPF Urine Mucus (Auto) (NEGATIVE) /HPF Urine Culture Reflexed (NO) Urine Glucose (NEGATIVE) mg/dL Influenza Type A Ag (NEGATIVE) Influenza Type B Ag (NEGATIVE) RSV (PCR) (Negative) SARS-CoV-2 (PCR) (NEGATIVE) - Progress Progress: improved Discussed with .: Nate Will see patient in: hospital (observation) Counseled pt/family regarding: lab results, diagnosis, rad results - Departure Departure Disposition: Home Clinical Impression: 4 mm right middle lobe noncalcified nodu, Urinary bladder calcification/mass, Colon, diverticulosis, 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 The patient was counseled regarding Diagnosis,Lab results, Imaging studies, need for follow up and when to return to the Emergency Room. Prescriptions given: Discharge Note I have spoken with the patient and/or caregivers. I have explained the patient's condition, diagnosis and treatment plan based on the information available to me at this time. I have answered the patient's and/or caregiver's questions and addressed any concerns. The patient and/or caregivers have as good understanding of the patient's diagnosis, condition and treatment plan as can be expected at this point. The vital signs have been stable. The patient's condition is stable and appropriate for discharge from the emergency department. The patient will pursue further outpatient evaluation with the primary care physician or other designated or consulting physician as outlined in the discharge instructions. The patient and/or caregivers are agreeable to this plan of care and follow-up instructions have been explained in detail. The patient and/or caregivers have received these instruction. The patient/and or caregivers are aware that any significant change in condition or worsening of symptoms should prompt an immediate return to this or the closest emergency department or call 911.
[2021-05-29 13:03] LABS: Absolute Neutrophil Ct (ANC) 7.71 (1.4-6.9); Basophil (Absolute #) 0.03 (0-0.4); Eosinophil % 1.1 % (0.00-5.0); Eosinophil (Absolute #) 0.11 (0-0.5); Hematocrit 42.6 % (42-50); Hemoglobin 14.1 gm/dl (12.5-18.0); Lymphocyte (Absolute #) 1.34 (1.0-4.6); Lymphocytes % 13.4 % (24.0-44.0); Mean Cell Volume 89.7 fl (78-100); Mean Corpuscular Hemoglobin 29.7 pg (26-32); Mean Corpuscular Hgb Concent. 33.1 g/dl (32-36); Monocyte (Absolute #) 0.84 (0.0-1.3); Monocytes % 8.4 % (0.0-12.0); Neutrophil % 76.8 % (36.0-66.0); Platelet Count 195 K/mm3 (150-450); Red Blood Count 4.75 M/mm3 (4.1-5.6); Red Cell Distribution Width 13.3 % (11.5-14.0)
--- NOTE | 2021-05-29 13:21 | XRAY ---
Indication: Chest pain. Comparison: September 14, 2020. Portable apical lordotic chest underinflated and clear. Heart not enlarged with new left AICD. Bony thorax intact again with mild osteopenia and degenerative changes. Impression: Nonacute underinflated chest with chronic features.
[2021-05-29 13:31] LABS: ALKALINE PHOSPHATASE 77 U/L (38-126); ANION GAP 13.4 MEQ/L (5-15); BLOOD UREA NITROGEN 20 mg/dL (9-20); CHLORIDE 105 mmol/L (98-107); Calcium 9.7 mg/dL (8.4-10.2); Carbon Dioxide 26 mmol/L (22-30); Creatinine 1 1.27 mg/dL (0.66-1.25); EST GLOMERULAR FILTRATION RATE > 60.0 ML/MIN; Glucose 99 mg/dL (74-106); LIPASE 156 U/L (23-300); NT PRO BNP 1060 pg/mL (0-900); Potassium 4.4 mmol/L (3.5-5.1); SGOT/AST 30 U/L (17-59); SGPT/ALT 37 U/L (0-50); SODIUM 140 mmol/L (137-145); Total Protein 7.8 g/dL (6.3-8.2)
[2021-05-29 15:39] LABS: Appearance SLIGHTLY CLOUDY (CLEAR); Bilirubin NEGATIVE (NEGATIVE); Blood NEGATIVE Ery/ul (0-5); Glucose NEGATIVE (NEGATIVE); Ketones NEGATIVE (NEGATIVE); Leukocyte Esterase NEGATIVE (NEGATIVE); Mucus SLIGHT /HPF (NEGATIVE); Nitrite NEGATIVE (NEGATIVE); Protein,Urine Dip 100 (Negative); Specific Gravity 1.029 (1.005-1.025); Urobilinogen 2 mg/dL (0-1)
--- NOTE | 2021-05-29 17:00 | XRAY ---
Indication: Epigastric pain. Multiple contiguous axial images obtained through the abdomen and pelvis using 80 cc Isovue 370 contrast. Comparison: None Lung bases demonstrate minimal fibrosis/scarring. Indeterminant 4 mm right middle lobe noncalcified nodule. Heart not enlarged. Noncontrasted stomach and bowel loops appear nonobstructed with normal appendix. Minimal descending and sigmoid diverticulosis. No free fluid/air. Posterior urinary bladder demonstrates 1.3 cm curvilinear calcification, possible bladder wall mass. Remaining liver, gallbladder, pancreas, spleen, adrenal glands, kidneys, ureters, and bladder are unremarkable. Moderate scattered aortoiliac calcifications. No AAA or pathologic retroperitoneal lymphadenopathy. Osseous structures intact with mild degenerative spondylosis throughout the thoracolumbar spine. Incidental small fatty left inguinal hernia. Impression: 1. Indeterminate 4 mm right middle lobe noncalcified nodule. 2. 1.3 cm urinary bladder calcification/mass. Rule out malignancy such as transitional cell carcinoma. 3. Incidental colonic diverticulosis, multilevel degenerative spondylosis, and small fatty left inguinal hernia.
[2021-05-29 18:49] LABS: INFLUENZA A NEGATIVE (NEGATIVE); INFLUENZA B NEGATIVE (NEGATIVE); RESPIRATORY SYNCTIAL VIRUS NEGATIVE (Negative); SARS-CoV-2 Xpert Express NEGATIVE (NEGATIVE)
[2021-05-29] MEDS ORDERED: NITRO-BID 2% UD PACKETS TOP ONE (20:11)
[2021-05-29] MEDS ORDERED: BABY ASPIRIN 81 MG CHEW PO ONE (20:12)
[2021-05-29] MEDS ORDERED: TYLENOL 325 MG PO PRN (20:49)
[2021-05-29] MEDS ORDERED: MILK OF MAGNESIA 30 ML PO PRN (20:49)
[2021-05-29] MEDS ORDERED: MAALOX ES 30 ML UNIT DOSE PO PRN (20:49)
[2021-05-29] MEDS ORDERED: Senokot-S Tablet PO PRN (20:49)
[2021-05-29] MEDS ORDERED: ZOCOR 20MG PO SCH (22:00)
[2021-05-29] MEDS ORDERED: Zetia 10 MG** 10 MG, ZOCOR 20MG** 40 MG PO SCH ×2 (22:00)
[2021-05-29] MEDS ORDERED: ENTRESTO 49 MG-51 MG TABLET ONE (23:02)
[2021-05-29] MEDS ORDERED: Effient 10 MG TABLET PO SCH (23:09)
[2021-05-29] MEDS: ENTRESTO 49 MG-51 MG TABLET PO SCH (23:11)
[2021-05-29] MEDS: COREG 12.5 MG PO SCH (23:12)
[2021-05-29] MEDS ORDERED: ZOFRAN ODT 4 MG PO PRN (23:12)
[2021-05-30 06:28] LABS: Risk Ratio 3.8
[2021-05-30] MEDS: ENTRESTO 49 MG-51 MG TABLET PO SCH (09:22)
[2021-05-30] MEDS: COREG 12.5 MG PO SCH (09:22)
[2021-05-30] MEDS ORDERED: Effient 10 MG TABLET PO SCH (10:00)
[2021-05-30] MEDS ORDERED: Lasix 20 MG/2 ML IV SCH (10:00)
--- NOTE | 2021-05-30 11:04 | PCM.SSS ---
History of Present Illness - Chief Complaint Chief Complaint: ACS History of Present Illness: is a 65 year old male patient of Dr Hope. Hx CAD/ PA with cardiac arrest August 2020 Stent x2 Followed by [facility] Dr Rema Nolan.Also CHF on Entresto. C/O low sternal/epigastroic abd pain. States xs perspiration after taking a new med for anxiety last week(Lexapro 10mg) C/O gas and stomach unsettled for past month.Patient was seen by his PCP yesterday who advised him to go to ER. He is admitted for obs Dg ACS. Troponin was not elevated ,BNP was mildly elevated. Patient denies chest pain this morning,no dispnea but c/o bloating discomfort upper abdomen.Appetite is normal and denies dark stool or N/V. - Review of Systems Constitutional: Fatigue Eyes: No Symptoms Ears, Nose, & Throat: Nose Discharge Respiratory: Short Of Breath (on exertion) Cardiac: Chest Pain (state more epigastric area) Abdominal/Gastrointestinal: Other (bloating dyspepsia) Genitourinary Symptoms: No Symptoms Musculoskeletal: No Symptoms Skin: No Symptoms Neurological: No Symptoms Psychological: Anxiety (since PA last year), Other (Quit drinking beer and chewing tabacco after PA Spring 2020) Endocrine: No Symptoms Hematologic/Lymphatic: Other (is on anticoagulant ) Medications & Allergies Home Medications: Home Medication List Omeprazole 40 mg PO DAILY 09/14/20 [History Confirmed 05/29/21] Aspirin [Ecotrin] 81 mg PO DAILY 05/29/21 [History Confirmed 05/29/21] Atorvastatin Calcium [Lipitor 40Mg] 40 mg PO HS 05/29/21 [History Confirmed 05/29/21] Carvedilol 12.5 mg [Coreg 12.5 mg] 12.5 mg PO BID 05/29/21 [History Confirmed 05/29/21] Eplerenone 25 mg PO DAILY 05/29/21 [History Confirmed 05/29/21] Prasugrel HCL 10 MG [Effient 10 MG TABLET] 10 mg PO HS 05/29/21 [History Confirmed 05/29/21] Sacubitril/Valsartan [Entresto 97 mg-103 mg Tablet] 1 tab PO BID 05/29/21 [History Confirmed 05/29/21] Sucralfate [Carafate] 1 g PO QID #60 tablet 05/30/21 [Rx] Allergies/Adverse Reactions: Allergies Allergy/AdvReac Type Severity Reaction Status Date / Time No Known Drug Allergies Allergy Verified 05/29/21 12:26 - Past Medical History Past Medical History: Yes Neurological History: No Pertinent History ENT History: No Pertinent History Cardiac History: High Cholesterol, Hypertension, Myocardial Infarction (PA) Respiratory History: No Pertinent History Endocrine Medical History: No Pertinent History Musculoskelatal History: No Pertinent History GI Medical History: No Pertinent History History: Other Pyscho-Social History: Anxiety, Depression Male Reproductive Disorders: No Pertinent History Comment: told today that he had a spot on bladder - Past Surgical History Past Surgical History: Yes Cardiac History: Cardiac Stent, Internal Defibrillator, Pacemaker Other Surgical History: cardiac stentsx2 - Social History Smoking Status: Never smoker Exposure to second hand smoke: No Alcohol: None Drug Use: none - Physical Exam Vital Signs: Vital Signs - 24 hr Temp Pulse Resp BP Pulse Ox 05/30/21 08:00 97.7 F 63 15 157/92 95 05/30/21 04:00 98.1 F 71 18 128/73 95 05/29/21 23:34 97.4 F 59 L 16 135/76 97 05/29/21 21:03 97.5 F 65 18 195/98 96 05/29/21 20:57 97.5 F 65 18 195/98 96 05/29/21 20:49 96 05/29/21 20:27 97 05/29/21 19:23 69 19 185/109 96 05/29/21 18:55 61 19 153/103 96 05/29/21 17:32 60 14 166/93 96 05/29/21 15:20 62 17 164/92 98 05/29/21 14:04 61 17 154/87 96 05/29/21 13:49 84 18 148/87 98 05/29/21 12:51 96 05/29/21 12:19 97.7 F 92 H 20 200/112 97 General Appearance: no apparent distress Neurologic Exam: alert, oriented x 3, cooperative, regroover II-XII nml as tested, normal mood/affect, nml cerebellar function Eye Exam: eyes nml inspection Ears, Nose, Throat Exam: normal ENT inspection Neck Exam: normal inspection Respiratory Exam: normal breath sounds Cardiovascular Exam: regular rate/rhythm Gastrointestinal/Abdomen Exam: normal bowel sounds, tenderness (epigastum mildy tender and no guarding), distention Rectal Exam: not done Back Exam: normal inspection Extremity Exam: normal inspection (no pitting edema,asa hose on) Skin Exam: normal color, warm, dry Results - Labs Lab/Micro Results: Lab Results-Last 24 Hours 05/29/21 05/29/21 05/29/21 Range/Units 12:59 12:59 12:59 WBC 10.0 (4.0-10.5) K/mm3 RBC 4.75 (4.1-5.6) M/mm3 Hgb 14.1 (12.5-18.0) gm/dl Hct 42.6 (42-50) % MCV 89.7 (78-100) fl MCH 29.7 (26-32) pg MCHC 33.1 (32-36) g/dl RDW 13.3 (11.5-14.0) % Plt Count 195 (150-450) K/mm3 MPV 12.0 H (7.5-11.0) fl Gran % 76.8 H (36.0-66.0) % Eos # (Auto) 0.11 (0-0.5) Absolute Lymphs (auto) 1.34 (1.0-4.6) Absolute Monos (auto) 0.84 (0.0-1.3) Lymphocytes % 13.4 L (24.0-44.0) % Monocytes % 8.4 (0.0-12.0) % Eosinophils % 1.1 (0.00-5.0) % Basophils % 0.3 (0.0-0.4) % Absolute Granulocytes 7.71 H (1.4-6.9) Basophils # 0.03 (0-0.4) Sodium 140 (137-145) mmol/L Potassium 4.4 (3.5-5.1) mmol/L Chloride 105 (98-107) mmol/L Carbon Dioxide 26 (22-30) mmol/L Anion Gap 13.4 (5-15) MEQ/L BUN 20 (9-20) mg/dL Creatinine 1.27 H (0.66-1.25) mg/dL Estimated GFR > 60.0 ML/MIN Glucose 99 (74-106) mg/dL Calcium 9.7 (8.4-10.2) mg/dL Total Bilirubin 0.80 (0.2-1.3) mg/dL AST 30 (17-59) U/L ALT 37 (0-50) U/L Alkaline Phosphatase 77 (38-126) U/L Troponin I < 0.012 (0.000-0.034) ng/mL NT-Pro-B Natriuret Pep 1060 H (0-900) pg/mL Serum Total Protein 7.8 (6.3-8.2) g/dL Albumin 5.0 (3.5-5.0) g/dL Triglycerides (30-150) mg/dL Cholesterol (50-200) mg/dL LDL Cholesterol (30-100) mg/dL HDL Cholesterol (40-60) mg/dL Heart Disease Risk Ratio Lipase 156 (23-300) U/L Urine Color (YELLOW) Urine Appearance (CLEAR) Urine pH (5-6) Ur Specific [place] (1.005-1.025) Urine Protein (Negative) Urine Ketones (NEGATIVE) Urine Blood (0-5) Rosales/ul Urine Nitrite (NEGATIVE) Urine Bilirubin (NEGATIVE) Urine Urobilinogen (0-1) mg/dL Ur Leukocyte Esterase (NEGATIVE) Urine WBC (Auto) (0-5) /HPF Urine RBC (Auto) (0-2) /HPF U Epithel Cells (Auto) (FEW) /HPF Urine Bacteria (Auto) (NEGATIVE) /HPF Urine Mucus (Auto) (NEGATIVE) /HPF Urine Culture Reflexed (NO) Urine Glucose (NEGATIVE) mg/dL Influenza Type A Ag (NEGATIVE) Influenza Type B Ag (NEGATIVE) RSV (PCR) (Negative) SARS-CoV-2 (PCR) (NEGATIVE) 05/29/21 05/29/21 05/29/21 Range/Units 15:22 16:18 17:55 WBC (4.0-10.5) K/mm3 RBC (4.1-5.6) M/mm3 Hgb (12.5-18.0) gm/dl Hct (42-50) % MCV (78-100) fl MCH (26-32) pg MCHC (32-36) g/dl RDW (11.5-14.0) % Plt Count (150-450) K/mm3 MPV (7.5-11.0) fl Gran % (36.0-66.0) % Eos # (Auto) (0-0.5) Absolute Lymphs (auto) (1.0-4.6) Absolute Monos (auto) (0.0-1.3) Lymphocytes % (24.0-44.0) % Monocytes % (0.0-12.0) % Eosinophils % (0.00-5.0) % Basophils % (0.0-0.4) % Absolute Granulocytes (1.4-6.9) Basophils # (0-0.4) Sodium (137-145) mmol/L Potassium (3.5-5.1) mmol/L Chloride (98-107) mmol/L Carbon Dioxide (22-30) mmol/L Anion Gap (5-15) MEQ/L BUN (9-20) mg/dL Creatinine (0.66-1.25) mg/dL Estimated GFR ML/MIN Glucose (74-106) mg/dL Calcium (8.4-10.2) mg/dL Total Bilirubin (0.2-1.3) mg/dL AST (17-59) U/L ALT (0-50) U/L Alkaline Phosphatase (38-126) U/L Troponin I 0.018 (0.000-0.034) ng/mL NT-Pro-B Natriuret Pep (0-900) pg/mL Serum Total Protein (6.3-8.2) g/dL Albumin (3.5-5.0) g/dL Triglycerides (30-150) mg/dL Cholesterol (50-200) mg/dL LDL Cholesterol (30-100) mg/dL HDL Cholesterol (40-60) mg/dL Heart Disease Risk Ratio Lipase (23-300) U/L Urine Color KARI (YELLOW) Urine Appearance SLIGHTLY CLOUDY (CLEAR) Urine pH 5.0 (5-6) Ur Specific [place] 1.029 (1.005-1.025) Urine Protein 100 (Negative) Urine Ketones NEGATIVE (NEGATIVE) Urine Blood NEGATIVE (0-5) Rosales/ul Urine Nitrite NEGATIVE (NEGATIVE) Urine Bilirubin NEGATIVE (NEGATIVE) Urine Urobilinogen 2 (0-1) mg/dL Ur Leukocyte Esterase NEGATIVE (NEGATIVE) Urine WBC (Auto) NONE (0-5) /HPF Urine RBC (Auto) NONE (0-2) /HPF U Epithel Cells (Auto) NONE (FEW) /HPF Urine Bacteria (Auto) NONE (NEGATIVE) /HPF Urine Mucus (Auto) SLIGHT (NEGATIVE) /HPF Urine Culture Reflexed NO (NO) Urine Glucose NEGATIVE (NEGATIVE) mg/dL Influenza Type A Ag NEGATIVE (NEGATIVE) Influenza Type B Ag NEGATIVE (NEGATIVE) RSV (PCR) NEGATIVE (Negative) SARS-CoV-2 (PCR) NEGATIVE (NEGATIVE) 05/29/21 05/29/21 05/30/21 Range/Units 19:00 22:15 01:10 WBC (4.0-10.5) K/mm3 RBC (4.1-5.6) M/mm3 Hgb (12.5-18.0) gm/dl Hct (42-50) % MCV (78-100) fl MCH (26-32) pg MCHC (32-36) g/dl RDW (11.5-14.0) % Plt Count (150-450) K/mm3 MPV (7.5-11.0) fl Gran % (36.0-66.0) % Eos # (Auto) (0-0.5) Absolute Lymphs (auto) (1.0-4.6) Absolute Monos (auto) (0.0-1.3) Lymphocytes % (24.0-44.0) % Monocytes % (0.0-12.0) % Eosinophils % (0.00-5.0) % Basophils % (0.0-0.4) % Absolute Granulocytes (1.4-6.9) Basophils # (0-0.4) Sodium (137-145) mmol/L Potassium (3.5-5.1) mmol/L Chloride (98-107) mmol/L Carbon Dioxide (22-30) mmol/L Anion Gap (5-15) MEQ/L BUN (9-20) mg/dL Creatinine (0.66-1.25) mg/dL Estimated GFR ML/MIN Glucose (74-106) mg/dL Calcium (8.4-10.2) mg/dL Total Bilirubin (0.2-1.3) mg/dL AST (17-59) U/L ALT (0-50) U/L Alkaline Phosphatase (38-126) U/L Troponin I 0.013 0.020 0.020 (0.000-0.034) ng/mL NT-Pro-B Natriuret Pep (0-900) pg/mL Serum Total Protein (6.3-8.2) g/dL Albumin (3.5-5.0) g/dL Triglycerides (30-150) mg/dL Cholesterol (50-200) mg/dL LDL Cholesterol (30-100) mg/dL HDL Cholesterol (40-60) mg/dL Heart Disease Risk Ratio Lipase (23-300) U/L Urine Color (YELLOW) Urine Appearance (CLEAR) Urine pH (5-6) Ur Specific [place] (1.005-1.025) Urine Protein (Negative) Urine Ketones (NEGATIVE) Urine Blood (0-5) Rosales/ul Urine Nitrite (NEGATIVE) Urine Bilirubin (NEGATIVE) Urine Urobilinogen (0-1) mg/dL Ur Leukocyte Esterase (NEGATIVE) Urine WBC (Auto) (0-5) /HPF Urine RBC (Auto) (0-2) /HPF U Epithel Cells (Auto) (FEW) /HPF Urine Bacteria (Auto) (NEGATIVE) /HPF Urine Mucus (Auto) (NEGATIVE) /HPF Urine Culture Reflexed (NO) Urine Glucose (NEGATIVE) mg/dL Influenza Type A Ag (NEGATIVE) Influenza Type B Ag (NEGATIVE) RSV (PCR) (Negative) SARS-CoV-2 (PCR) (NEGATIVE) 05/30/21 Range/Units 05:15 WBC (4.0-10.5) K/mm3 RBC (4.1-5.6) M/mm3 Hgb (12.5-18.0) gm/dl Hct (42-50) % MCV (78-100) fl MCH (26-32) pg MCHC (32-36) g/dl RDW (11.5-14.0) % Plt Count (150-450) K/mm3 MPV (7.5-11.0) fl Gran % (36.0-66.0) % Eos # (Auto) (0-0.5) Absolute Lymphs (auto) (1.0-4.6) Absolute Monos (auto) (0.0-1.3) Lymphocytes % (24.0-44.0) % Monocytes % (0.0-12.0) % Eosinophils % (0.00-5.0) % Basophils % (0.0-0.4) % Absolute Granulocytes (1.4-6.9) Basophils # (0-0.4) Sodium (137-145) mmol/L Potassium (3.5-5.1) mmol/L Chloride (98-107) mmol/L Carbon Dioxide (22-30) mmol/L Anion Gap (5-15) MEQ/L BUN (9-20) mg/dL Creatinine (0.66-1.25) mg/dL Estimated GFR ML/MIN Glucose (74-106) mg/dL Calcium (8.4-10.2) mg/dL Total Bilirubin (0.2-1.3) mg/dL AST (17-59) U/L ALT (0-50) U/L Alkaline Phosphatase (38-126) U/L Troponin I (0.000-0.034) ng/mL NT-Pro-B Natriuret Pep (0-900) pg/mL Serum Total Protein (6.3-8.2) g/dL Albumin (3.5-5.0) g/dL Triglycerides 136 (30-150) mg/dL Cholesterol 140 (50-200) mg/dL LDL Cholesterol 67 (30-100) mg/dL HDL Cholesterol 37 L (40-60) mg/dL Heart Disease Risk Ratio 3.8 Lipase (23-300) U/L Urine Color (YELLOW) Urine Appearance (CLEAR) Urine pH (5-6) Ur Specific [place] (1.005-1.025) Urine Protein (Negative) Urine Ketones (NEGATIVE) Urine Blood (0-5) Rosales/ul Urine Nitrite (NEGATIVE) Urine Bilirubin (NEGATIVE) Urine Urobilinogen (0-1) mg/dL Ur Leukocyte Esterase (NEGATIVE) Urine WBC (Auto) (0-5) /HPF Urine RBC (Auto) (0-2) /HPF U Epithel Cells (Auto) (FEW) /HPF Urine Bacteria (Auto) (NEGATIVE) /HPF Urine Mucus (Auto) (NEGATIVE) /HPF Urine Culture Reflexed (NO) Urine Glucose (NEGATIVE) mg/dL Influenza Type A Ag (NEGATIVE) Influenza Type B Ag (NEGATIVE) RSV (PCR) (Negative) SARS-CoV-2 (PCR) (NEGATIVE) - Radiology Impressions Radiology Exams & Impressions: Radiology Procedures Category Date Time Status ABDOMEN AND PELVIS W CONTRAST [CT] Stat Exams 05/29/21 15:59 Completed ABDOMINAL-LIMITED [US] Routine Exams 05/30/21 Ordered CHEST 1 VIEW (PORTABLE) Stat Exams 05/29/21 12:47 Completed - Other Procedures and Tests Respiratory Therapy 05/31/21 05:00 EKG DAILY 06/01/21 05:00 EKG DAILY Assessment/Plan (1) ACS (acute coronary syndrome) Status: Acute Assessment & Plan: troponins not elevated,Epigastric/low sternal pain Cardiac VS GI Code(s): I24.9 - ACUTE ISCHEMIC HEART DISEASE, UNSPECIFIED (2) CHF (congestive heart failure) Status: Chronic Qualifiers: Heart failure chronicity: chronic Assessment & Plan: elevated BNP,patient is on Entresto and BNP stays mildly elevated per [facility] Dr Rema Nolan . Code(s): I50.9 - HEART FAILURE, UNSPECIFIED (3) Dyspepsia Status: Acute Assessment & Plan: bloating and epigastic siscomfort . possible GBdz - but US negative for stones or wall thickening testing done today and will be followed by PCP. Gastritis on blood thinner -started Carafate,will need a scope and prefers Dr Nicole De Jesus to evaluate. Outpatient appt set. Code(s): R10.13 - EPIGASTRIC PAIN Hospital Summary - Hospital Course Hospital Course: Patient was admitted from ER to Med surg with C/O low sternal/epigastic pain. Troponins remained normal. BNP was mildly elevated and this is about patient's baseline since PA and stents August/September [address] Rema Nolan who will continue to follow with patient upon discharge. GI workup for dyspepsia on anticoagulant. GBUS was neg for stones and no wall thickening. Discussed need for scope and patient would like to see Dr Nicole De Jesus,appt made as outpatient. Patient will follow with his PCP, Dr Citlali De Dios. - Vitals & Intake/Output Vital Signs: Vital Signs Temperature 97.7 F 05/30/21 08:00 Pulse Rate 63 05/30/21 08:00 Respiratory Rate 15 05/30/21 08:00 Blood Pressure 157/92 05/30/21 08:00 O2 Sat by Pulse Oximetry 95 05/30/21 08:00 Intake & Output: Intake & Output 05/27/21 05/28/21 05/29/21 05/30/21 11:59 11:59 11:59 11:59 Intake Total 600 Output Total 900 Balance -300 Weight 99.2 kg - Lab Result Diagrams: 05/29/21 12:59 05/29/21 12:59 Lab Results-Last 24 Hrs: Lab Results-Last 24 Hours 05/29/21 05/29/21 05/29/21 Range/Units 12:59 12:59 12:59 WBC 10.0 (4.0-10.5) K/mm3 RBC 4.75 (4.1-5.6) M/mm3 Hgb 14.1 (12.5-18.0) gm/dl Hct 42.6 (42-50) % MCV 89.7 (78-100) fl MCH 29.7 (26-32) pg MCHC 33.1 (32-36) g/dl RDW 13.3 (11.5-14.0) % Plt Count 195 (150-450) K/mm3 MPV 12.0 H (7.5-11.0) fl Gran % 76.8 H (36.0-66.0) % Eos # (Auto) 0.11 (0-0.5) Absolute Lymphs (auto) 1.34 (1.0-4.6) Absolute Monos (auto) 0.84 (0.0-1.3) Lymphocytes % 13.4 L (24.0-44.0) % Monocytes % 8.4 (0.0-12.0) % Eosinophils % 1.1 (0.00-5.0) % Basophils % 0.3 (0.0-0.4) % Absolute Granulocytes 7.71 H (1.4-6.9) Basophils # 0.03 (0-0.4) Sodium 140 (137-145) mmol/L Potassium 4.4 (3.5-5.1) mmol/L Chloride 105 (98-107) mmol/L Carbon Dioxide 26 (22-30) mmol/L Anion Gap 13.4 (5-15) MEQ/L BUN 20 (9-20) mg/dL Creatinine 1.27 H (0.66-1.25) mg/dL Estimated GFR > 60.0 ML/MIN Glucose 99 (74-106) mg/dL Calcium 9.7 (8.4-10.2) mg/dL Total Bilirubin 0.80 (0.2-1.3) mg/dL AST 30 (17-59) U/L ALT 37 (0-50) U/L Alkaline Phosphatase 77 (38-126) U/L Troponin I < 0.012 (0.000-0.034) ng/mL NT-Pro-B Natriuret Pep 1060 H (0-900) pg/mL Serum Total Protein 7.8 (6.3-8.2) g/dL Albumin 5.0 (3.5-5.0) g/dL Triglycerides (30-150) mg/dL Cholesterol (50-200) mg/dL LDL Cholesterol (30-100) mg/dL HDL Cholesterol (40-60) mg/dL Heart Disease Risk Ratio Lipase 156 (23-300) U/L Urine Color (YELLOW) Urine Appearance (CLEAR) Urine pH (5-6) Ur Specific [place] (1.005-1.025) Urine Protein (Negative) Urine Ketones (NEGATIVE) Urine Blood (0-5) Rosales/ul Urine Nitrite (NEGATIVE) Urine Bilirubin (NEGATIVE) Urine Urobilinogen (0-1) mg/dL Ur Leukocyte Esterase (NEGATIVE) Urine WBC (Auto) (0-5) /HPF Urine RBC (Auto) (0-2) /HPF U Epithel Cells (Auto) (FEW) /HPF Urine Bacteria (Auto) (NEGATIVE) /HPF Urine Mucus (Auto) (NEGATIVE) /HPF Urine Culture Reflexed (NO) Urine Glucose (NEGATIVE) mg/dL Influenza Type A Ag (NEGATIVE) Influenza Type B Ag (NEGATIVE) RSV (PCR) (Negative) SARS-CoV-2 (PCR) (NEGATIVE) 05/29/21 05/29/21 05/29/21 Range/Units 15:22 16:18 17:55 WBC (4.0-10.5) K/mm3 RBC (4.1-5.6) M/mm3 Hgb (12.5-18.0) gm/dl Hct (42-50) % MCV (78-100) fl MCH (26-32) pg MCHC (32-36) g/dl RDW (11.5-14.0) % Plt Count (150-450) K/mm3 MPV (7.5-11.0) fl Gran % (36.0-66.0) % Eos # (Auto) (0-0.5) Absolute Lymphs (auto) (1.0-4.6) Absolute Monos (auto) (0.0-1.3) Lymphocytes % (24.0-44.0) % Monocytes % (0.0-12.0) % Eosinophils % (0.00-5.0) % Basophils % (0.0-0.4) % Absolute Granulocytes (1.4-6.9) Basophils # (0-0.4) Sodium (137-145) mmol/L Potassium (3.5-5.1) mmol/L Chloride (98-107) mmol/L Carbon Dioxide (22-30) mmol/L Anion Gap (5-15) MEQ/L BUN (9-20) mg/dL Creatinine (0.66-1.25) mg/dL Estimated GFR ML/MIN Glucose (74-106) mg/dL Calcium (8.4-10.2) mg/dL Total Bilirubin (0.2-1.3) mg/dL AST (17-59) U/L ALT (0-50) U/L Alkaline Phosphatase (38-126) U/L Troponin I 0.018 (0.000-0.034) ng/mL NT-Pro-B Natriuret Pep (0-900) pg/mL Serum Total Protein (6.3-8.2) g/dL Albumin (3.5-5.0) g/dL Triglycerides (30-150) mg/dL Cholesterol (50-200) mg/dL LDL Cholesterol (30-100) mg/dL HDL Cholesterol (40-60) mg/dL Heart Disease Risk Ratio Lipase (23-300) U/L Urine Color KARI (YELLOW) Urine Appearance SLIGHTLY CLOUDY (CLEAR) Urine pH 5.0 (5-6) Ur Specific [place] 1.029 (1.005-1.025) Urine Protein 100 (Negative) Urine Ketones NEGATIVE (NEGATIVE) Urine Blood NEGATIVE (0-5) Rosales/ul Urine Nitrite NEGATIVE (NEGATIVE) Urine Bilirubin NEGATIVE (NEGATIVE) Urine Urobilinogen 2 (0-1) mg/dL Ur Leukocyte Esterase NEGATIVE (NEGATIVE) Urine WBC (Auto) NONE (0-5) /HPF Urine RBC (Auto) NONE (0-2) /HPF U Epithel Cells (Auto) NONE (FEW) /HPF Urine Bacteria (Auto) NONE (NEGATIVE) /HPF Urine Mucus (Auto) SLIGHT (NEGATIVE) /HPF Urine Culture Reflexed NO (NO) Urine Glucose NEGATIVE (NEGATIVE) mg/dL Influenza Type A Ag NEGATIVE (NEGATIVE) Influenza Type B Ag NEGATIVE (NEGATIVE) RSV (PCR) NEGATIVE (Negative) SARS-CoV-2 (PCR) NEGATIVE (NEGATIVE) 05/29/21 05/29/21 05/30/21 Range/Units 19:00 22:15 01:10 WBC (4.0-10.5) K/mm3 RBC (4.1-5.6) M/mm3 Hgb (12.5-18.0) gm/dl Hct (42-50) % MCV (78-100) fl MCH (26-32) pg MCHC (32-36) g/dl RDW (11.5-14.0) % Plt Count (150-450) K/mm3 MPV (7.5-11.0) fl Gran % (36.0-66.0) % Eos # (Auto) (0-0.5) Absolute Lymphs (auto) (1.0-4.6) Absolute Monos (auto) (0.0-1.3) Lymphocytes % (24.0-44.0) % Monocytes % (0.0-12.0) % Eosinophils % (0.00-5.0) % Basophils % (0.0-0.4) % Absolute Granulocytes (1.4-6.9) Basophils # (0-0.4) Sodium (137-145) mmol/L Potassium (3.5-5.1) mmol/L Chloride (98-107) mmol/L Carbon Dioxide (22-30) mmol/L Anion Gap (5-15) MEQ/L BUN (9-20) mg/dL Creatinine (0.66-1.25) mg/dL Estimated GFR ML/MIN Glucose (74-106) mg/dL Calcium (8.4-10.2) mg/dL Total Bilirubin (0.2-1.3) mg/dL AST (17-59) U/L ALT (0-50) U/L Alkaline Phosphatase (38-126) U/L Troponin I 0.013 0.020 0.020 (0.000-0.034) ng/mL NT-Pro-B Natriuret Pep (0-900) pg/mL Serum Total Protein (6.3-8.2) g/dL Albumin (3.5-5.0) g/dL Triglycerides (30-150) mg/dL Cholesterol (50-200) mg/dL LDL Cholesterol (30-100) mg/dL HDL Cholesterol (40-60) mg/dL Heart Disease Risk Ratio Lipase (23-300) U/L Urine Color (YELLOW) Urine Appearance (CLEAR) Urine pH (5-6) Ur Specific [place] (1.005-1.025) Urine Protein (Negative) Urine Ketones (NEGATIVE) Urine Blood (0-5) Rosales/ul Urine Nitrite (NEGATIVE) Urine Bilirubin (NEGATIVE) Urine Urobilinogen (0-1) mg/dL Ur Leukocyte Esterase (NEGATIVE) Urine WBC (Auto) (0-5) /HPF Urine RBC (Auto) (0-2) /HPF U Epithel Cells (Auto) (FEW) /HPF Urine Bacteria (Auto) (NEGATIVE) /HPF Urine Mucus (Auto) (NEGATIVE) /HPF Urine Culture Reflexed (NO) Urine Glucose (NEGATIVE) mg/dL Influenza Type A Ag (NEGATIVE) Influenza Type B Ag (NEGATIVE) RSV (PCR) (Negative) SARS-CoV-2 (PCR) (NEGATIVE) 05/30/21 Range/Units 05:15 WBC (4.0-10.5) K/mm3 RBC (4.1-5.6) M/mm3 Hgb (12.5-18.0) gm/dl Hct (42-50) % MCV (78-100) fl MCH (26-32) pg MCHC (32-36) g/dl RDW (11.5-14.0) % Plt Count (150-450) K/mm3 MPV (7.5-11.0) fl Gran % (36.0-66.0) % Eos # (Auto) (0-0.5) Absolute Lymphs (auto) (1.0-4.6) Absolute Monos (auto) (0.0-1.3) Lymphocytes % (24.0-44.0) % Monocytes % (0.0-12.0) % Eosinophils % (0.00-5.0) % Basophils % (0.0-0.4) % Absolute Granulocytes (1.4-6.9) Basophils # (0-0.4) Sodium (137-145) mmol/L Potassium (3.5-5.1) mmol/L Chloride (98-107) mmol/L Carbon Dioxide (22-30) mmol/L Anion Gap (5-15) MEQ/L BUN (9-20) mg/dL Creatinine (0.66-1.25) mg/dL Estimated GFR ML/MIN Glucose (74-106) mg/dL Calcium (8.4-10.2) mg/dL Total Bilirubin (0.2-1.3) mg/dL AST (17-59) U/L ALT (0-50) U/L Alkaline Phosphatase (38-126) U/L Troponin I (0.000-0.034) ng/mL NT-Pro-B Natriuret Pep (0-900) pg/mL Serum Total Protein (6.3-8.2) g/dL Albumin (3.5-5.0) g/dL Triglycerides 136 (30-150) mg/dL Cholesterol 140 (50-200) mg/dL LDL Cholesterol 67 (30-100) mg/dL HDL Cholesterol 37 L (40-60) mg/dL Heart Disease Risk Ratio 3.8 Lipase (23-300) U/L Urine Color (YELLOW) Urine Appearance (CLEAR) Urine pH (5-6) Ur Specific [place] (1.005-1.025) Urine Protein (Negative) Urine Ketones (NEGATIVE) Urine Blood (0-5) Rosales/ul Urine Nitrite (NEGATIVE) Urine Bilirubin (NEGATIVE) Urine Urobilinogen (0-1) mg/dL Ur Leukocyte Esterase (NEGATIVE) Urine WBC (Auto) (0-5) /HPF Urine RBC (Auto) (0-2) /HPF U Epithel Cells (Auto) (FEW) /HPF Urine Bacteria (Auto) (NEGATIVE) /HPF Urine Mucus (Auto) (NEGATIVE) /HPF Urine Culture Reflexed (NO) Urine Glucose (NEGATIVE) mg/dL Influenza Type A Ag (NEGATIVE) Influenza Type B Ag (NEGATIVE) RSV (PCR) (Negative) SARS-CoV-2 (PCR) (NEGATIVE) - Radiology Exams Ordered Rad Exams-Entire Visit: Radiology Procedures Category Date Time Status ABDOMEN AND PELVIS W CONTRAST [CT] Stat Exams 05/29/21 15:59 Completed ABDOMINAL-LIMITED [US] Routine Exams 05/30/21 Ordered CHEST 1 VIEW (PORTABLE) Stat Exams 05/29/21 12:47 Completed - Procedures and Test Procedures and Tests throughout Hospitalization: Therapy Orders & Screens 05/29/21 20:49 EKG [id number],QAMX3,PRN Comment: 05/29/21 21:45 EKG ROUTINE Comment: Diagnosis: ACS 05/30/21 05:00 EKG DAILY Comment: Diagnosis: ACS 05/31/21 05:00 EKG DAILY Comment: Diagnosis: ACS 06/01/21 05:00 EKG DAILY Comment: Diagnosis: ACS - Discharge Disposition: Home, Self-Care Condition: Stable Prescriptions: New Sucralfate [Carafate] 1 g PO QID #60 tablet Continue Omeprazole 40 mg PO DAILY Prasugrel HCL 10 MG [Effient 10 MG TABLET] 10 mg PO HS Eplerenone 25 mg PO DAILY Sacubitril/Valsartan [Entresto 97 mg-103 mg Tablet] 1 tab PO BID Aspirin [Ecotrin] 81 mg PO DAILY Atorvastatin Calcium [Lipitor 40Mg] 40 mg PO HS Carvedilol 12.5 mg [Coreg 12.5 mg] 12.5 mg PO BID Instructions: Chest Pain Additional Instructions: Patient notified after discharge of bladder mass and small lung nodule to be followed with PCP DR Citlali De Dios Follow up with: DERRICK DE DIOS [Primary Care Provider] - 06/05/21 11:15 am NICOLE DE JESUS [ACTIVE STAFF] - 06/20/21 2:10 pm Forms: Discharge Instructions
[2021-05-30] MEDS ORDERED: MEDICATION INTERVENTION PO SCH (11:15)
[2021-05-30] MEDS ORDERED: ECOTRIN 81 MG PO SCH (12:00)
[2021-05-30] MEDS ORDERED: Protonix 40MG Tablet PO SCH (12:00)
[2021-05-30 16:07] VITALS: BP 128/73; PULSE 66
--- NOTE | 2021-05-30 16:21 | XRAY ---
Indication: Abdomen pain. Two-dimensional right upper quadrant abdominal sonogram performed. Comparison: None Several bowel gas limits exam with nonvisualization pancreas. Visualized liver homogeneous in echogenicity without hepatomegaly or ascites. Gallbladder normally distended without gallstones, wall thickening, or pericholecystic fluid. Common bile duct measures 2.5 mm. Right kidney sonographically normal measuring 11.5 cm in length. Impression: Nonvisualization pancreas. Remaining right upper quadrant sonogram is negative.
--- NOTE | 2021-05-30 17:18 | PCM.DCORD ---
- Discharge Disposition: Home, Self-Care Condition: Stable Prescriptions: New Sucralfate [Carafate] 1 g PO QID #60 tablet Continue Omeprazole 40 mg PO DAILY Prasugrel HCL 10 MG [Effient 10 MG TABLET] 10 mg PO HS Eplerenone 25 mg PO DAILY Sacubitril/Valsartan [Entresto 97 mg-103 mg Tablet] 1 tab PO BID Aspirin [Ecotrin] 81 mg PO DAILY Atorvastatin Calcium [Lipitor 40Mg] 40 mg PO HS Carvedilol 12.5 mg [Coreg 12.5 mg] 12.5 mg PO BID Instructions: Chest Pain Additional Instructions: Patient notified after discharge of bladder mass and small lung nodule to be followed with PCP DR Citlali Sue Follow up with: DERRICK SUE [Primary Care Provider] - 06/05/21 11:15 am NICOLE BRADLEY [ACTIVE STAFF] - 06/20/21 2:10 pm Forms: Discharge Instructions
[2021-05-31 02:48] VITALS: O2SAT 97
[2021-05-31] MEDS ORDERED: EPLERENONE 25 MG PO SCH (10:00)
[2021-05-31] MEDS ORDERED: NON-FORMULARY ITEM (Omeprazole [Omeprazole] 40 MG Capsule.Dr) PO SCH (10:00)
== END 2021-05-30 17:09 | disposition home or self-care (01) ==
LOC: ED 12:14 → MED SURG 20:43
PROVIDERS: ADMIT Family Medicine; ATTEND Family Medicine
DX: I24.9 Acute ischemic heart disease, unspecified (principal); I50.9 Heart failure, unspecified; R10.13 Epigastric pain; I11.0 Hypertensive heart disease with heart failure; F41.9 Anxiety disorder, unspecified; R79.89 Other specified abnormal findings of blood chemistry; E78.00 Pure hypercholesterolemia, unspecified; I25.2 Old myocardial infarction; D49.4 Neoplasm of unspecified behavior of bladder; Z79.01 Long term (current) use of anticoagulants; Z79.899 Other long term (current) drug therapy; Z20.828 Contact with and (suspected) exposure to other viral communicable diseases
CPT/HCPCS: 0241U; 36000; 36415; 71045; 74177; 76705; 80053; 80061; 81001; 83690; 83721; 83880; 84484; 85025; 93005; 93041; 94760; 99285; G0378; A9270-GY